=== PATIENT | male | born 1950 | race Caucasian/White ===

== ENCOUNTER → 2024-05-19 | Outpatient (CLI) | payer MEDICARE ==
--- NOTE | 2024-05-19 15:09 | US ---
EXAMINATION TYPE: US venous doppler duplex LE BI DATE OF EXAM: 05/19/2024 1:48 PM COMPARISON: NONE CLINICAL INDICATION: Male, 73 years old with history of R60.0 EDEMA R68.89 ABNORMAL PUNEET; Bilateral le g pain at night x couple years SIDE PERFORMED: Bilateral TECHNIQUE: The lower extremity deep venous system is examined utilizing real time linear array sonog marquis with graded compression, doppler sonography and color-flow sonography. VESSELS IMAGED: Common Femoral Vein Deep Femoral Vein Greater Saphenous Vein * Femoral Vein Popliteal Vein Small Saphenous Vein * Proximal Calf Veins (* superficial vessels) Grayscale, color doppler, spectral doppler imaging performed of the deep veins of the lower extremiti es. There is normal flow, compressibility, vascular waveforms. Right Leg: Appears negative for DVT Left Leg: Appears negative for DVT IMPRESSION: No deep venous thrombosis of the bilateral lower extremities. [facility] 05/19/2024 2:14 PM
--- NOTE | 2024-05-19 15:10 | US ---
EXAMINATION TYPE: US arterial LE single level DATE OF EXAM: 05/19/2024 2:07 PM CLINICAL INDICATION: Male, 73 years old with history of R60.0 EDEMA R68.89 ABNORMAL PUNEET; Bilateral le g pain at night x couple years History of: Smoker: No Hypertension: Yes Diabetic: No Hyperlipidemia: No TIA/CVA: No Previous Vascular Surgery: No IN: No Vascular Ulcers: No Claudication: No Gangrene: No Doppler Waveforms: Right: Biphasic waveforms Left: Triphasic within the posterior tibial artery. Biphasic within the dorsalis pedis artery. Right Brachial Pressure: 138 Left Brachial Pressure: 141 Ankle-Brachial Indices: Right: 1.23 Left: 1.21 (Vessel hardening > 1.4; Normal 0.9 - 1.4, Moderate 0.7 - 0.9, Severe 0.5-0.7) IMPRESSION: Normal ankle-brachial indices bilaterally.
== END | disposition home or self-care (01) ==
LOC: RADUSWWP 13:24
PROVIDERS: ATTEND Family Medicine
DX: R60.0 Localized edema (principal); R68.89 Other general symptoms and signs
CPT/HCPCS: 93922; 93970